=== PATIENT | female | born 1985 | race Caucasian/White ===

== ENCOUNTER 2018-03-28 12:09 | Inpatient (IN) | payer OTHER ==
[~2018-03-28] VITALS: Ht 160 cm; Wt 95.1 kg
[~2018-03-28 12:09] MED LIST: ALBUTEROL17 GM IH; ELAVIL25 MG PO; MEDROL DOSEPAK4 MG PO; MOTRIN800 MG PO; PROVENTIL2.5 MG/3 M IH; SYMBICORT60 INHALA1 IH; TORADOL10 MG PO
[2018-03-28 12:35] LABS: BASOPHIL (%) 0.6 % (0-1); BASOPHIL COUNT 0.1 K/uL (0-0.1); EOSINOPHIL (%) 4.6 % (0-5); EOSINOPHIL COUNT 0.6 K/uL (0-0.3); HEMATOCRIT 41.4 % (36.0-46.0); HEMOGLOBIN 14.2 G/DL (11.9-15.5); IMMATURE GRANULOCYTE (%) 0.4 % (0.0-0.7); LYMPHOCYTE (%) 29.8 % (15-42); LYMPHOCYTE COUNT 3.9 K/uL (1.0-2.8); MCH 29.2 PG (29.0-34.0); MCHC 34.3 G/DL (30.0-36.0); MONOCYTE COUNT 0.7 K/uL (0-0.8); NEUTROPHIL (%) 59.6 % (45-76); NEUTROPHIL COUNT 7.7 K/uL (1.8-6.4); PLATELET COUNT 321 K/uL (156-360); RBC DIS.WIDTH-CV 12.8 % (11.8-14.6); RBC DIS.WIDTH-SD 39.5 % (39-53); RED BLOOD COUNT 4.87 M/uL (3.80-5.20); WHITE BLOOD COUNT 12.9 K/uL (4.1-10.2)
[2018-03-28 12:45] LABS: ALBUMIN 4.5 g/dL (3.2-4.8); CHLORIDE 106 mEq/L (99-109); POTASSIUM 3.2 mEq/L (3.7-5.4); SODIUM 144 mEq/L (136-147)
[2018-03-28 12:48] LABS: GLUCOSE 126 mg/dL (70-99); TOTAL PROTEIN 7.5 g/dL (6.4-8.3)
[2018-03-28 12:49] LABS: TOTAL BILIRUBIN 0.7 mg/dL (0.0-1.0)
[2018-03-28 12:50] LABS: SERUM ETHYL ALCOHOL < 10 mg/dL
[2018-03-28 12:51] LABS: CREATININE 0.7 mg/dL (0.6-1.3); GFR ESTIMATE (CALCULATED) > 59 mL/min/
[2018-03-28 12:52] LABS: ALKALINE PHOSPHATASE 97 IU/L (3-129)
[2018-03-28 12:53] LABS: AST (GOT) 13 IU/L (2-34); UREA NITROGEN (BUN) 6 mg/dL (9-23)
[2018-03-28 12:55] LABS: ACETAMINOPHEN (TYLENOL) < 10 mcg/mL (10-30); ALT (GPT) 15 IU/L (3-49); SALICYLATE < 5.0 MG/DL (15-30)
[2018-03-28 13:02] LABS: QUANTITATIVE HCG < 4.0 MIU/ML
[2018-03-28 14:57] LABS: AMPHETAMINE NEGATIVE (500 ng/mL); BARBITURATES NEGATIVE (200 ng/mL); BENZODIAZEPINES NEGATIVE (150 ng/mL); BUPRENORPHINE NEGATIVE (10 ng/mL); COCAINE NEGATIVE (150 ng/mL); METHADONE NEGATIVE (200 ng/mL); METHAMPHETAMINE NEGATIVE (500 ng/mL); OPIATES (MORPHINE) NEGATIVE (100 ng/mL); OXYCODONE NEGATIVE (100 ng/mL); PHENCYCLIDINE NEGATIVE (25 ng/mL); PROPOXYPHENE NEGATIVE (300 ng/mL); THC CANNABINOIDS NEGATIVE (50 ng/mL); TRICYCLIC ANTIDEPRESSANTS NEGATIVE (300 ng/mL)
[2018-03-28 17:02] VITALS: BP 124/66
[2018-03-28] MEDS ORDERED: ADDERALL15 MG PO (17:53)
[2018-03-28] MEDS ORDERED: CYMBALTA60 MG PO (17:55)
[2018-03-28] MEDS ORDERED: CYMBALTA30 MG PO (17:57)
[2018-03-28] MEDS ORDERED: MINIPRESS2 MG PO (18:02)
[2018-03-28] MEDS ORDERED: TOPAMAX50 MG PO (18:09)
[2018-03-28] MEDS ORDERED: TOPAMAX100 MG PO (18:10)
[2018-03-28] MEDS ORDERED: ABILIFY2 MG PO (18:17)
[2018-03-29 09:02] VITALS: BP 123/68
[2018-03-29 16:06] VITALS: BP 131/75
[2018-03-30 07:46] VITALS: BP 118/67
[2018-03-30 15:26] VITALS: BP 120/70
[2018-03-31 07:56] VITALS: BP 122/68
[2018-03-31] MEDS ORDERED: DULOXETINE HCL60 MG PO (09:05)
[2018-03-31] MEDS ORDERED: ARIPIPRAZOLE2 MG PO (09:05)
== END 2018-03-31 11:52 | disposition home or self-care (01) | DRG 885 ==
LOC: EME 12:09 → EDOF 13:50 → 1WEST 13:50 → ENRESERV 16:45 → 1WEST 16:45
PROVIDERS: Emergency Medicine
DX: F33.2 Major depressive disorder, recurrent severe without psychotic features (principal); E87.6 Hypokalemia; F41.1 Generalized anxiety disorder; F43.10 Post-traumatic stress disorder, unspecified; J45.909 Unspecified asthma, uncomplicated; R45.851 Suicidal ideations; Z56.0 Unemployment, unspecified; G47.00 Insomnia, unspecified; Z68.37 Body mass index [BMI] 37.0-37.9, adult; E66.9 Obesity, unspecified
CPT/HCPCS: 80053; 84702; 85025; 90839; 93005; 94640; 94640 76; 97150 GO; 97166 GO; 97530 GO; 99281; 99283; G0480